=== PATIENT | male | born 1975 | race African-American/Black ===

== ENCOUNTER 2017-01-07 14:10 | Emergency (ER) | payer MEDICAID, OTHER ==
[~2017-01-07] VITALS: Ht 177.8 cm; Wt 107.9 kg
[2017-01-07 14:12] VITALS: Ht 177.8 cm; Wt 107.9 kg
[2017-01-07] MEDS ORDERED: BACI28.34 TOP (15:15)
--- NOTE | 2017-01-07 15:26 | ERD ---
ER Documentation Chief Complaint Date/Time DATE: 01/07/17 TIME: 15:24 Chief Complaint PAINFUL BUMP ON HEAD AFTER HAIRCUT 2 DAYS AGO HPI 21-year-old male comes in with swelling to the right scalp after getting a haircut 2 days ago. He describes as achy, with slight swelling, redness. ROS All systems reviewed and are negative except as per history of present illness. Medications Home Meds Active Scripts Bacitracin* (Bacitracin Zinc Oint*) 28.35 Gm Oint, 1 APPLIC TOP BID, #1 TUB APPLI TO Prov:TEJAL CUEVAS PA-C 01/07/17 Allergies Allergies: Coded Allergies: BELLA Inhibitors (Verified Allergy, Unknown, 04/27/15) Penicillins (Verified Allergy, Unknown, 04/27/15) iodine (Verified Allergy, Unknown, 04/27/15) Uncoded Allergies: BELLA INHIBITOR (Allergy, Unknown, 04/07/15) PMhx/Soc History of Surgery: No Anesthesia Reaction: No Hx Neurological Disorder: No Hx Respiratory Disorders: Yes (bronchitis) Hx Cardiac Disorders: Yes (htn) Hx Psychiatric Problems: Yes (ANXIETY) Hx Miscellaneous Medical Probl: No Hx Alcohol Use: No Hx Substance Use: Yes Hx Tobacco Use: No (24 YEARS SMOKER) Smoking Status: Never smoker Physical Exam Vitals Vital Signs Date Time Temp Pulse Resp B/P Pulse Ox O2 Delivery O2 Flow Rate FiO2 01/07/17 14:12 98.6 94 16 130/84 96 Physical Exam General: Well-developed, well-nourished. The patient appears in no acute distress. HEENT: Head is normocephalic, atraumatic. No scleral icterus. Neck: Supple. Nontender. Lungs: Clear to auscultation. Normal air movement. Heart: Regular rate and rhythm. S1 and S2 are normal. No murmurs, gallops, or rubs. Abdomen: Nondistended. Extremities: No clubbing or cyanosis. Moving extremities x 4. No weakness. Neurologic: Alert and oriented 3. No focal deficits. Normal speech and gait. Skin: Right temporal scalp has 2 areas of erythema, they are less than 1 cm, tender to palpation, no fluctuance. Procedures/MDM 41-year-old male comes in with 2 small boils after getting a haircut. Patient likely presents with superficial infection, without evidence of an abscess, no incision and drainage warranted at this time. The lesions are primarily flat, the central aspect slightly swollen and erythematous. Patient was advised to do warm compresses, topical ointment will be of asked to play as well. Apply topical ointment as needed. Departure Diagnosis: Primary Impression: Boil Condition: Good Patient Instructions: Abscess, Antiobiotic Treatment Only Additional Instructions: Call your primary care doctor TOMORROW for an appointment during the next 1-2 days.See the doctor sooner or return here if your condition worsens before your appointment time. TEJAL CUEVAS PA-C Jan 07, 2017 15:26
== END 2017-01-07 15:47 | disposition home or self-care (01) ==
LOC: FTE 14:10
DX: L02.821 Furuncle of head [any part, except face] (principal); I10 Essential (primary) hypertension; Z87.891 Personal history of nicotine dependence
CPT/HCPCS: 99283

== ENCOUNTER 2017-07-21 17:24 | Emergency (ER) | END 2017-07-21 19:38 | disposition home or self-care (01) ==

== ENCOUNTER 2017-09-27 15:16 | Emergency (ER) | END 2017-09-27 17:40 | disposition home or self-care (01) ==

== ENCOUNTER 2018-09-22 16:37 | Emergency (ER) | payer OTHER ==
[~2018-09-22] VITALS: Ht 180.3 cm; Wt 109.0 kg
[~2018-09-22 16:37] MED LIST: BACI28.34 TOP; BACL10TA PO; CIPR500T4 PO; NAPR-985 PO
[2018-09-22 16:46] VITALS: Ht 180.3 cm; Wt 109.0 kg
[2018-09-22] MEDS ORDERED: KETOROLAC 30 MG INJ IM STA (19:10)
[2018-09-22] MEDS ORDERED: NAPR-985 PO (19:13)
--- NOTE | 2018-09-22 19:20 | ERD ---
ER Documentation Chief Complaint Chief Complaint painful bump on head x 1 year , getting worse HPI 43-year-old male with no reported past medical or surgical history who presents with complaint of painful bump on top of head over the past year. States pain is gotten worse at site over the past week. He denies any history of trauma or fall. States he has not been evaluated by PMD regarding this issue. States he had mild intermittent frontal headache but otherwise denies worsening of headache, dizziness, lightheadedness, fever chills, vision changes, shortness of breath, dyspnea or any other concerning symptoms. At time examination patient asking for [place] for pain. ROS All systems reviewed and are negative except as per history of present illness. Medications Home Meds Active Scripts Naproxen* (Naprosyn*) 500 Mg Tablet, 500 MG PO BID PRN for PAIN AND/OR INFLAMMATION, #30 TAB Prov:LISA COBB PA-C 09/22/18 Naproxen* (Naprosyn*) 500 Mg Tablet, 500 MG PO BID PRN for PAIN AND/OR INFLAMMATION for 10 Days, #20 TAB Prov:CARLY LAU MD 09/27/17 Baclofen* (Baclofen*) 10 Mg Tablet, 10 MG PO Q8, #20 TAB Prov:CARLY LAU MD 09/27/17 Ciprofloxacin Hcl* (Ciprofloxacin Hcl*) 500 Mg Tablet, 500 MG PO BID for 10 Days, TAB Prov:BAILEY KENNEDY PA-C 07/21/17 Bacitracin* (Bacitracin Zinc Oint*) 28.35 Gm Oint, 1 APPLIC TOP BID, #1 TUB APPLI TO Prov:TEJAL CUEVAS PA-C 01/07/17 Allergies Allergies: Coded Allergies: BELLA Inhibitors (Verified Allergy, Unknown, 07/21/17) Penicillins (Verified Allergy, Unknown, 07/21/17) iodine (Verified Allergy, Unknown, 07/21/17) PMhx/Soc History of Surgery: No Anesthesia Reaction: No Hx Neurological Disorder: No Hx Respiratory Disorders: Yes (bronchitis) Hx Cardiac Disorders: Yes (htn) Hx Psychiatric Problems: Yes (ANXIETY) Hx Miscellaneous Medical Probl: No Hx Alcohol Use: No Hx Substance Use: No Hx Tobacco Use: Yes (24 YEARS SMOKER) Smoking Status: Never smoker FmHx Family History: No diabetes, No coronary disease, No other Physical Exam Vitals Vital Signs Date Temp Pulse Resp B/P (MAP) Pulse Ox O2 O2 Flow FiO2 Time Delivery Rate 09/22/18 98.2 96 18 133/84 98 16:46 (100) Physical Exam Const: No acute distress Head: Atraumatic, 3 x 3 cm bump on top of head that is nonfluctuant no surrounding erythema, tenderness to palpation Eyes: Normal Conjunctiva ENT: Normal External Ears, Nose and Mouth. Neck: Full range of motion. No meningismus. Resp: Clear to auscultation bilaterally Cardio: Regular rate and rhythm, no murmurs Abd: Soft, non tender, non distended. Normal bowel sounds Skin: No petechiae or rashes Back: No midline or flank tenderness Ext: No cyanosis, or edema Neur: Awake and alert, nonfocal examination Psych: Normal Mood and Affect Results 24 hrs Current Medications Medications Dose Sig/Simona Start Time Status Last (Trade) Ordered Route PRN Stop Time Admin Dose Reason Admin Ketorolac 30 mg ONCE STAT 09/22/18 DC Tromethamine IM 19:10 (Toradol) 09/22/18 19:11 Procedures/MDM 43-year-old male presents with complaint of bump on top of head. Denies any history of trauma or fall. 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 I have low suspicion for intracranial process requiring further emergent work-up or care. Patient instructed to follow-up with PMD for possible referral to his calker for continued care. He is requesting [place] but instructed patient that given his symptoms he likely would benefit from nonopiate medications I have anti-inflammatory properties such as naproxen. DISPOSITION PLAN: We discussed follow up with the patient's primary care doctor within 24 to 48 hours. Patient counseled regarding my diagnostic impression and care plan. Prior to discharge all questions answered. Pt agrees with treatment plan and understands strict return precautions. Precautionary instructions provided including instructions to return to the ER if not improving or for any worsening or changing symptoms or concerns. Disclaimer: Inadvertent spelling and grammatical errors are likely due to EHR/dictation software use and do not reflect on the overall quality of patient care. Also, please note that the electronic time recorded on this note does not necessarily reflect the actual time of the patient encounter. Departure Diagnosis: Primary Impression: Headache Condition: Stable LISA COBB PA-C September 22, 2018 19:20
[2018-09-22] MEDS ORDERED: NAPROXEN 500 MG TAB PO ONE (19:30)
[2018-09-22 19:36] VITALS: BP 138/80; PULSE 92; RESP 18
== END 2018-09-22 19:37 | disposition home or self-care (01) ==
LOC: FTE 16:37
DX: R51 Headache (principal); I10 Essential (primary) hypertension; Z87.891 Personal history of nicotine dependence
CPT/HCPCS: Z7502; Z7610; 99282